=== PATIENT | female | born 1965 | race Caucasian/White ===

== ENCOUNTER 2021-05-14 00:54 | Emergency (ER) | payer SELFPAY ==
[2021-05-14 01:37] LABS: Bilirubin Negative (Negative); Blood, Urine Moderate (Negative); Clarity Clear (Clear); Glucose, Urine (Dipstick) Negative (Negative); Ketone, Urine Negative (Negative); Leukocyte Negative (Negative); Nitrite Negative (Negative); Protein, Urine (Dipstick) 100 mg/dL (Neg-Trace); pH, Urine 5.5 (5.0-9.0)
[2021-05-14] MEDS ORDERED: Sodium Chloride 0.9% 1,000 ML ONE (01:37)
[2021-05-14] MEDS ORDERED: Ondansetron PF 4 MG/2 ML Vial ONE (01:37)
[2021-05-14 01:48] LABS: Bacteria/HPF Rare-Few HPF (None Seen); RBC/HPF 0-3 HPF (0-3); WBC/HPF 0-3 HPF (0-3)
[2021-05-14 01:49] LABS: Amphetamine Detected (NotDetected); Barbiturates Screen Not Detected (NotDetected); Benzodiazepine Screen Not Detected (NotDetected); Cocaine Metabolite Screen Not Detected (NotDetected); Medtox Control Line Valid? VALID (VALID); Methadone Not Detected (NotDetected); Methamphetamine Detected (NotDetected); Opiate Screen Not Detected (NotDetected); Oxycodone Screen Not Detected (NotDetected); Phencyclidine (PCP) Not Detected (NotDetected); THC/Cannabinoid Screen Detected (NotDetected); Tricyclic Screen Not Detected (NotDetected)
[2021-05-14 02:04] LABS: Band 1 % (5-11); Hemoglobin 13.9 g/dL (12.0-16.0); Lymphocytes 1 % (21-51); MDiff Complete? YES; Mean Corpuscular HGB CONC 32.4 g/dL (32.0-36.0); Mean Corpuscular Hemoglobin 28.8 pg (27.0-31.0); Mean Corpuscular Volume 88.8 fL (78.0-98.0); Mean Platelet Volume 6.3 fL (7.4-10.4); Monocytes 2 % (0-10); Neutrophil 96 % (42-75); Platelet Count 385 thou/uL (130-400); RBC Distribution Width 12.3 % (11.5-14.5); RBC Morphology Normal; Red Blood Cell (RBC) Count 4.82 mill/uL (4.20-5.40); White Blood Cell (WBC) Count 19.7 thou/uL (4.8-10.8)
[2021-05-14 02:10] LABS: CK (CPK) 30 U/L (29-168); Lipase 24 U/L (8-78)
[2021-05-14 02:11] LABS: Acetaminophen Less than 6.0 mcg/mL (10.0-30.0); Alcohol Less than 10 mg/dL (Less than 10); Salicylate Less than 8.0 mg/dL (15.0-30.0)
[2021-05-14 02:15] LABS: ALT (SGPT) 18 U/L (8-55); AST (SGOT) 22 U/L (5-34); Albumin 3.2 g/dL (3.5-5.0); Alkaline Phosphatase 84 U/L (40-110); Anion Gap 15 mmol/L (10-20); BUN (Urea Nitrogen) 46 mg/dL (9.8-20.1); Bilirubin, Total 0.4 mg/dL (0.2-1.2); CRP (Inflammatory) 53.64 mg/dL (= or < 0.5); Calc. Creatinine Clearance 0 mL/min (70-130); Calcium 8.1 mg/dL (7.8-10.44); Carbon Dioxide 23 mmol/L (22-29); Chloride 95 mmol/L (98-107); Globulin 2.6 g/dL (2.4-3.5); Glucose 80 mg/dL (70-105); Potassium 4.3 mmol/L (3.5-5.1); Protein, Total 5.8 g/dL (6.0-8.3); Sodium 129 mmol/L (136-145)
[2021-05-14] MEDS ORDERED: Sodium Chloride 0.9% 100 ML ONE (02:23)
[2021-05-14] MEDS ORDERED: Sodium Chloride 0.9% 250 ML 250 ML ONE (02:23)
[2021-05-14] MEDS ORDERED: Azithromycin 500 MG VIAL ONE (02:23)
[2021-05-14] MEDS ORDERED: cefTRIAXone\\ROCEPHIN 2 GM VIAL ONE (02:23)
[2021-05-14] MEDS ORDERED: Metoclopramide HCl 10 MG/2 ML VIAL ONE (03:14)
[2021-05-14] MEDS ORDERED: Iopamidol 370 76% 100 ML VIAL ONE (11:32)
[2021-05-14 17:13] LABS: SARS-CoV-2 PCR by NAA Not Detected (NotDetected)
== END 2021-05-14 04:29 | disposition home or self-care (01) ==
LOC: MADERS 00:54
DX: J18.9 Pneumonia, unspecified organism (principal); F15.20 Other stimulant dependence, uncomplicated; E87.1 Hypo-osmolality and hyponatremia; E86.0 Dehydration; Z20.822 Contact with and (suspected) exposure to COVID-19; Z71.6 Tobacco abuse counseling
CPT/HCPCS: 71045; 71260; 80053; 80306; 80307; 81003; 81015; 82150; 82550; 83690; 84484; 85025; 85379; 86140; 87804; 96365; 96367; 96375; J0456; J0696; J2405; J2765; J3490; J7050; Q9967; U0003; U0005